=== PATIENT | male | born 1985 | race Caucasian/White ===

== ENCOUNTER 2018-07-21 07:16 | Day surgery (SDC) | payer BC ==
[2018-07-16 16:11] VITALS: BMI 37.3
[~2018-07-21 07:16] MED LIST: DEXAMETHASONE SOD PHOSPHATE 10 MG/ML 1 ML VIAL IV ONE; HEPARIN SODIUM,PORCINE 5,000 UNIT/ML 1 ML VIAL SQ ONE; LACTATED RINGERS 1,000 ML IV SCH; LIDOCAINE 1% 20 ML VIAL (10MG/ML) FOR IV START INTRADERMA PRN; MIDAZOLAM (PF) 2 MG/2 ML VIAL IV PRN; ceFAZolin 3 GM in SODIUM CHLORIDE 0.9% 100 ML IVPB ONE; fentaNYL (PF) 50 MCG/ML 2 ML AMP IV PRN
[2018-07-21] MEDS ORDERED: DEXAMETHASONE SOD PHOS (MDV) 100 MG/10 ML VIAL IVP ONE ×2 (08:01→08:18)
[2018-07-21] MEDS ORDERED: ONDANSETRON 4 MG/2 ML VIAL IVP ONE ×2 (08:01→08:17)
[2018-07-21] MEDS ORDERED: HEPARIN SODIUM,PORCINE 5,000 UNIT/ML 1 ML VIAL SQ ONE (08:15)
[2018-07-21] MEDS ORDERED: MIDAZOLAM 2 MG/2 ML VIAL IVP ONE (08:48)
[2018-07-21] MEDS ORDERED: BUPIVACAIN-EPI 0.5%-1:200,000 30 ML VIAL SQ ONE (09:24)
[2018-07-21] MEDS ORDERED: BUPIVACAINE (PF) 0.25% 30 ML VIAL SQ ONE (10:18)
[2018-07-21] MEDS ORDERED: HYDROcodone/APAP 5-325MG 1 EACH TAB PO PRN (10:38)
[2018-07-21] MEDS ORDERED: NALOXONE 0.4 MG/ML 1 ML VIAL IV PRN (10:38)
[2018-07-21] MEDS ORDERED: PROPOFOL 10 MG/ML 20 ML VIAL IV ONE (10:39)
[2018-07-21] MEDS ORDERED: MIDAZOLAM 2 MG/2 ML VIAL ONE (10:39)
[2018-07-21] MEDS ORDERED: NEOSTIGMINE 1 MG/ML 10 ML VIAL ONE (10:39)
[2018-07-21] MEDS ORDERED: SUCCINYLCHOLINE CHLORIDE VIAL 200 MG/10 ML VIAL IV ONE (10:39)
[2018-07-21] MEDS ORDERED: ROPIVACAINE 5 MG/ML 30 ML VIAL ONE (10:39)
[2018-07-21] MEDS ORDERED: LIDOCAINE 1% INJ 10MG/ML (20 ML MDV) ONE (10:39)
[2018-07-21] MEDS ORDERED: fentaNYL (PF) 50 MCG/ML 2 ML AMP ONE (10:39)
[2018-07-21] MEDS ORDERED: GLYCOPYRROLATE 0.2 MG/ML 2 ML VIAL ONE (10:39)
[2018-07-21] MEDS ORDERED: VECURONIUM 10 MG VIAL IV ONE (10:39)
[2018-07-21] MEDS ORDERED: DEXAMETHASONE SOD PHOS (MDV) 100 MG/10 ML VIAL ONE (10:39)
--- NOTE | 2018-07-21 10:41 | P.OP ---
Date of Procedure: 07/21/18 Procedure(s) Performed: PREOPERATIVE DIAGNOSIS: Incarcerated umbilical hernia POSTOPERATIVE DIAGNOSIS: Incarcerated ventral hernia PROCEDURE: Ventral herniorrhaphy with mesh SURGEON: Kervin EBL: Minimal ANESTHESIA: General COMPLICATIONS: None OPERATIVE PROCEDURE: The patient was placed in the operating table in the supine position. A superior periumbilical incision was made using the scalpel. The subcutaneous tissues were dissected bluntly. The hernia sac was identified. This was actually ventral to the umbilicus. The hernia sac was partially excised. The remaining hernia was reduced back into the preperitoneal space. The preperitoneal space was dissected using blunt dissection and electrocautery. The umbilical attachments were elevated off the fascia using electrocautery. In doing so a small defect at the umbilicus was also seen and incorporated into the larger fascial opening. We now had a fascial defect measuring 1.5-2 cm in diameter. The 4.3 cm ventral ex mesh was placed beneath the fascia. This was sutured to the fascia using trans-fascial 0 Ethibond sutures. The defect was closed using interrupted [id number] 0 Ethibond sutures. The subcutaneous tissues were reapproximated using inverted 3 -0 Vicryl sutures. The umbilicus was tacked back down to the fascia using a 3- 0 Vicryl suture. The skin was closed using 4-0 Monocryl sutures. Skin glue and sterile dressings were then applied. DISPOSITION: Stable to recovery room
[2018-07-21 10:42] VITALS: TEMP 97.6
[2018-07-21 12:23] VITALS: RESP 16
[2018-07-21 12:53] VITALS: BP 129/80; PULSE 70
--- NOTE | 2018-07-21 14:06 | P.ONQ ---
Anesthesiology Proc Note - PNB - Peripheral Nerve Block Performed Bilateral Rectus Abdominis Single Time Out Performed: Yes Procedure Start Time: :15 Procedure Stop Time: :30 Indication: Acute Post-Operative Pain, Analgesia, Dx/Pain Location, Requested by physician Sedation Type: Sedate with meaningful contact maintained (20 ml total solution)
== END 2018-07-21 13:28 | disposition home or self-care (01) ==
LOC: OR 07:16
PROVIDERS: ATTEND Surgery
DX: K43.6 Other and unspecified ventral hernia with obstruction, without gangrene (principal); I10 Essential (primary) hypertension; Z79.899 Other long term (current) drug therapy
CPT/HCPCS: 49561; 49568; 64488; 88302; C1781; J2250; J0330; J1644; J2710; J0690; J2405; J2001; J3010; J1100; J2795; J2704

== ENCOUNTER 2020-06-30 20:17 | Emergency (ER) | payer BC ==
[2020-06-30 20:31] VITALS: TEMP 98.5
[2020-06-30] MEDS ORDERED: ALPRAZolam 0.25 MG TAB PO STA (20:43)
--- NOTE | 2020-06-30 20:46 | ED ---
General Adult HPI - General Chief complaint: Recheck/Abnormal Lab/Rx Stated complaint: L Arm Tingling Time Seen by Provider: 06/30/20 20:31 Source: patient Mode of arrival: ambulatory Limitations: no limitations - History of Present Illness Initial comments: Dictation was produced using Revert dictation software. please excuse any grammatical, word or spelling errors. This patient was cared for during a federal and state declared state of emerg ency secondary to Covid 19 Chief Complaint: 34-year-old male presents paresthesias. History of Present Illness: Extremities with past medical history of hypertension. Patient states that today he begins having strange paresthesias. He states it first began his left hand. He started today he is having a stroke then his symptoms moved to his right fingertips. Shortly after he began feeling symptoms in his bilateral toes. Patient states he was diagnosed with anxiety initially around the time when his daughter was born because she was being worked up for possible cystic fibrosis. Patient's daughter does not have cystic fibrosis. Patient has a history of hypertension. He is recently started hydrochlorothiazide. Recently he is been trying to lose weight and has been running in eating 1200 4000 tyrone a day and running several miles.. He has not been taking any weight loss supplements. The ROS documented in this emergency department record has been reviewed and confirmed by me. Those systems with pertinent positive or negative responses have been documented in the HPI. All other systems are other negative and/or noncontributory. PHYSICAL EXAM: General Impression: Alert and oriented x3, not in acute distress HEENT: Normocephalic atraumatic, extra-ocular movements intact, pupils equal and reactive to light bilaterally, mucous membranes moist. Cardiovascular: Heart regular rate and rhythm Chest: Able to complete full sentences, no retractions, no tachypnea Abdomen: abdomen soft, non-tender, non-distended, no organomegaly Musculoskeletal: Pulses present and equal in all extremities, no peripheral edema Motor: no focal deficits noted Neurological: CN II-XII grossly intact, no focal motor or sensory deficits noted, NIH of 0 Skin: Intact with no visualized rashes Psych: Anxious ED course: 34-year-old male presents with chief complaint of paresthesias. All signs upon arrival are within acceptable limits. Patient not having any chest pain. Neither is he have any respiratory symptoms. He has migrating paresthesias. This likely secondary to anxiety reaction. EKG interpretation: Ventricular rate 82, normal sinus rhythm,. Interval 144, QRS 110, QTc 467. No IN prolongation, no QTC prolongation, no ST or T-wave changes noted. No old EKG for comparison. Overall, this EKG is unremarkable Laboratory evaluation obtained. CBC [place]. Metabolic panel is negative. Lites are negative. There is some evidence of mild dehydration. Patient observed in emergency department and medically stable. His vitals are improved. Patient was given some anxiolytic with improvement of his symptoms. Reassurance provided. Patient clear for discharge. Advised follow-up with primary care physician. - Related Data Home Medications Medication Instructions Recorded Confirmed Aspirin 650 mg PO ONCE 06/30/20 06/30/20 Hydrochlorothiazide 12.5 mg PO DAILY 06/30/20 06/30/20 [hydroCHLOROthiazide] Metoprolol Succinate [Toprol XL] 25 mg PO DAILY 06/30/20 06/30/20 amLODIPine/ATORVASTATIN 1 tab PO HS 06/30/20 06/30/20 [amLODIPine/ATORVASTATIN 5-10 MG] Allergies Allergy/AdvReac Type Severity Reaction Status Date / Time No Known Allergies Allergy Verified 06/30/20 21:43 Review of Systems ROS Statement: Those systems with pertinent positive or pertinent negative responses have been documented in the HPI. ROS Other: All systems not noted in ROS Statement are negative. Past Medical History Past Medical History: Hypertension Additional Past Medical History / Comment(s): UMBILICAL HERNIA History of Any Multi-Drug Resistant Organisms: None Reported Past Surgical History: Adenoidectomy, Hernia Repair, Tonsillectomy Past Anesthesia/Blood Transfusion Reactions: No Reported Reaction Past Psychological History: Anxiety Smoking Status: Never smoker Past Alcohol Use History: Occasional Past Drug Use History: None Reported - Past Family History Mother Family Medical History: Cancer Additional Family Medical History / Comment(s): SKIN General Exam Limitations: no limitations Course Vital Signs 06/30/20 06/30/20 20:24 21:28 Temperature 98.5 F Pulse Rate 89 81 Respiratory 22 16 Rate Blood Pressure 166/118 137/97 O2 Sat by Pulse 98 99 Oximetry Medical Decision Making - Lab Data Result diagrams: 06/30/20 21:02 06/30/20 21:02 Lab Results 06/30/20 06/30/20 Range/Units 21:02 21:02 WBC 8.8 (3.8-10.6) k/uL RBC 5.77 (4.30-5.90) m/uL Hgb 16.9 (13.0-17.5) gm/dL Hct 50.6 (39.0-53.0) % MCV 87.6 (80.0-100.0) fL MCH 29.3 (25.0-35.0) pg MCHC 33.5 (31.0-37.0) g/dL RDW 13.4 (11.5-15.5) % Plt Count 251 (150-450) k/uL MPV 7.5 Neutrophils % 56 % Lymphocytes % 33 % Monocytes % 6 % Eosinophils % 1 % Basophils % 1 % Neutrophils # 5.0 (1.3-7.7) k/uL Lymphocytes # 2.9 (1.0-4.8) k/uL Monocytes # 0.5 (0-1.0) k/uL Eosinophils # 0.1 (0-0.7) k/uL Basophils # 0.1 (0-0.2) k/uL Sodium 137 (137-145) mmol/L Potassium 4.3 (3.5-5.1) mmol/L Chloride 99 (98-107) mmol/L Carbon Dioxide 25 (22-30) mmol/L Anion Gap 13 mmol/L BUN 23 H (9-20) mg/dL Creatinine 1.13 (0.66-1.25) mg/dL Est GFR (CKD-EPI)AfAm >90 (>60 ml/min/1.73 sqM) Est GFR (CKD-EPI)NonAf 84 (>60 ml/min/1.73 sqM) Glucose 103 H (74-99) mg/dL Calcium 10.1 (8.4-10.2) mg/dL Magnesium 2.2 (1.6-2.3) mg/dL Disposition Clinical Impression: Paresthesias Disposition: HOME SELF-CARE Condition: Good Is patient prescribed a controlled substance at d/c from ED?: No Referrals: Pranay Kirk DO [Primary Care Provider] - 1-2 days Time of Disposition: 22:00
[2020-06-30 21:16] LABS: Basophils # (A) 0.1 k/uL (0-0.2); Basophils % (A) 1 %; Eosinophils # (A) 0.1 k/uL (0-0.7); Eosinophils % (A) 1 %; HCT 50.6 % (39.0-53.0); HGB 16.9 gm/dL (13.0-17.5); Lymphocytes # (A) 2.9 k/uL (1.0-4.8); Lymphocytes % (A) 33 %; MCH 29.3 pg (25.0-35.0); MCHC 33.5 g/dL (31.0-37.0); MCV 87.6 fL (80.0-100.0); Mean Platelet Volume 7.5; Monocytes # (A) 0.5 k/uL (0-1.0); Monocytes % (A) 6 %; Neutrophils % (A) 56 %; Platelet Count 251 k/uL (150-450); RBC 5.77 m/uL (4.30-5.90); RDW 13.4 % (11.5-15.5); WBC 8.8 k/uL (3.8-10.6)
[2020-06-30 21:30] VITALS: RESP 16
[2020-06-30 21:38] LABS: African American GFR (CKD) >90 (>60 ml/min/1.73 sqM); Anion Gap 13 mmol/L; Blood Urea Nitrogen 23 mg/dL (9-20); Calcium 10.1 mg/dL (8.4-10.2); Carbon Dioxide 25 mmol/L (22-30); Chloride 99 mmol/L (98-107); Glucose 103 mg/dL (74-99); Magnesium 2.2 mg/dL (1.6-2.3); Non-African American GFR(CKD) 84 (>60 ml/min/1.73 sqM); Potassium 4.3 mmol/L (3.5-5.1); Sodium 137 mmol/L (137-145)
[2020-06-30 22:10] VITALS: BP 134/86; PULSE 80
== END 2020-06-30 22:09 | disposition home or self-care (01) ==
LOC: EC 20:17
DX: R20.2 Paresthesia of skin (principal); E86.0 Dehydration; I10 Essential (primary) hypertension; Z79.82 Long term (current) use of aspirin; Z79.899 Other long term (current) drug therapy
CPT/HCPCS: 36415; 80048; 83735; 85025; 93005; 99284

== ENCOUNTER 2020-11-04 03:00 | Inpatient (IN) | payer BC ==
[2020-11-04] MEDS ORDERED: ALBUTEROL HFA INHALER INHALATION STA (03:15)
[2020-11-04] MEDS ORDERED: DEXAMETHASONE SOD PHOSPHATE 10 MG/ML 1 ML VIAL IV STA (03:15)
[2020-11-04] MEDS ORDERED: SODIUM CHLORIDE 0.9% 1,000 ML IV STA (03:15)
[2020-11-04] MEDS ORDERED: ACETAMINOPHEN TAB 500 MG TAB PO STA (03:15)
[2020-11-04] MEDS ORDERED: KETOROLAC 15 MG/ML 1 ML VIAL IVP STA (03:15)
--- NOTE | 2020-11-04 03:24 | ED ---
SOB HPI - General Chief Complaint: Shortness of Breath Stated Complaint: COVID+, SOB Time Seen by Provider: 11/04/20 03:06 Source: patient, RN notes reviewed, old records reviewed Mode of arrival: ambulatory Limitations: no limitations - History of Present Illness Initial Comments: This is a 34-year-old male with around 1 week symptoms of coronavirus. Patient symptoms are progressively worsened with severe shortness of breath. Patient does have a pulse ox and has been dropping down in the 70s at home. Patient states he feels very weak and short of breath but no specific pain. Patient has had fevers. Patient is unvaccinated MD Complaint: shortness of breath, cough, anxiety -: days(s) Severity: severe Severity scale (1-10): 8 Quality: throbbing Consistency: constant Improves With: nothing Worsens With: exertion, movement, coughing, inspiration Context: recent URI, recent illness (Known positive history of coronavirus) Associated Symptoms: fever, cough - Related Data Home Medications Medication Instructions Recorded Confirmed Aspirin 650 mg PO ONCE 06/30/20 06/30/20 Hydrochlorothiazide 12.5 mg PO DAILY 06/30/20 06/30/20 [hydroCHLOROthiazide] Metoprolol Succinate [Toprol XL] 25 mg PO DAILY 06/30/20 06/30/20 amLODIPine/ATORVASTATIN 1 tab PO HS 06/30/20 06/30/20 [amLODIPine/ATORVASTATIN 5-10 MG] Allergies Allergy/AdvReac Type Severity Reaction Status Date / Time No Known Allergies Allergy Verified 11/04/20 03:07 Review of Systems ROS Statement: Those systems with pertinent positive or pertinent negative responses have been documented in the HPI. ROS Other: All systems not noted in ROS Statement are negative. Past Medical History Past Medical History: Hypertension Additional Past Medical History / Comment(s): UMBILICAL HERNIA, Covid 11/19 History of Any Multi-Drug Resistant Organisms: None Reported Past Surgical History: Adenoidectomy, Hernia Repair, Tonsillectomy Past Anesthesia/Blood Transfusion Reactions: No Reported Reaction Past Psychological History: Anxiety Smoking Status: Never smoker Past Alcohol Use History: Occasional Past Drug Use History: None Reported - Past Family History Mother Family Medical History: Cancer Additional Family Medical History / Comment(s): SKIN General Exam Limitations: no limitations General appearance: alert, in no apparent distress, anxious, lethargic Head exam: Present: atraumatic, normocephalic, normal inspection Eye exam: Present: normal appearance, PERRL, EOMI. Absent: scleral icterus, conjunctival injection, periorbital swelling ENT exam: Present: normal exam, mucous membranes moist Neck exam: Present: normal inspection. Absent: tenderness, meningismus, lymphadenopathy Respiratory exam: Present: normal lung sounds bilaterally. Absent: respiratory distress, wheezes, rales, rhonchi, stridor Cardiovascular Exam: Present: regular rate, normal rhythm, normal heart sounds. Absent: systolic murmur, diastolic murmur, rubs, gallop, clicks GI/Abdominal exam: Present: soft, normal bowel sounds. Absent: distended, tenderness, guarding, rebound, rigid Extremities exam: Present: normal inspection, full ROM, normal capillary refill. Absent: tenderness, pedal edema, joint swelling, calf tenderness Back exam: Present: normal inspection Neurological exam: Present: alert, oriented X3, CN II-XII intact Psychiatric exam: Present: normal affect, normal mood Skin exam: Present: warm, dry, intact, normal color. Absent: rash Course Vital Signs 11/04/20 11/04/20 11/04/20 03:04 04:06 05:31 Temperature 99.1 F 99.4 F Pulse Rate 92 84 Respiratory 24 18 Rate Blood Pressure 165/100 128/81 O2 Sat by Pulse 96 88 L 94 L Oximetry - Reevaluation(s) Reevaluation #1: 11/04/20 04:21 Medical records reviewed Reevaluation #2: 11/04/20 04:21 Patient does have improvement with supplemental O2 Reevaluation #3: 11/04/20 04:21 Symptoms Worsen at times especially when he lays down, pulse ox drops Medical Decision Making - Medical Decision Making 84 male will be admitted for coronavirus with hypoxia - Lab Data Result diagrams: 11/04/20 03:49 11/04/20 03:49 Lab Results 11/04/20 11/04/20 11/04/20 Range/Units 03:49 03:49 03:49 WBC 4.2 (3.8-10.6) k/uL RBC 4.86 (4.30-5.90) m/uL Hgb 14.5 (13.0-17.5) gm/dL Hct 42.7 (39.0-53.0) % MCV 87.9 (80.0-100.0) fL MCH 29.9 (25.0-35.0) pg MCHC 34.0 (31.0-37.0) g/dL RDW 13.7 (11.5-15.5) % Plt Count 173 (150-450) k/uL MPV 8.2 Neutrophils % 62 % Lymphocytes % 24 % Monocytes % 9 % Eosinophils % 0 % Basophils % 1 % Neutrophils # 2.6 (1.3-7.7) k/uL Lymphocytes # 1.0 (1.0-4.8) k/uL Monocytes # 0.4 (0-1.0) k/uL Eosinophils # 0.0 (0-0.7) k/uL Basophils # 0.0 (0-0.2) k/uL PT 11.0 (9.0-12.0) sec INR 1.0 (<1.2) APTT 28.6 (22.0-30.0) sec Sodium 136 L (137-145) mmol/L Potassium 3.5 (3.5-5.1) mmol/L Chloride 102 (98-107) mmol/L Carbon Dioxide 24 (22-30) mmol/L Anion Gap 10 mmol/L BUN 16 (9-20) mg/dL Creatinine 0.93 (0.66-1.25) mg/dL Est GFR (CKD-EPI)AfAm >90 (>60 ml/min/1.73 sqM) Est GFR (CKD-EPI)NonAf >90 (>60 ml/min/1.73 sqM) Glucose 90 (74-99) mg/dL Plasma Lactic Acid Marc (0.7-2.0) mmol/L Calcium 8.8 (8.4-10.2) mg/dL Magnesium 1.9 (1.6-2.3) mg/dL Total Bilirubin 0.5 (0.2-1.3) mg/dL AST 69 H (17-59) U/L ALT 84 H (4-49) U/L Alkaline Phosphatase 57 (38-126) U/L Lactate Dehydrogenase 865 H (313-618) U/L C-Reactive Protein 7.6 H (<1.0) mg/dL Total Protein 6.4 (6.3-8.2) g/dL Albumin 3.9 (3.5-5.0) g/dL 11/04/20 Range/Units 03:49 WBC (3.8-10.6) k/uL RBC (4.30-5.90) m/uL Hgb (13.0-17.5) gm/dL Hct (39.0-53.0) % MCV (80.0-100.0) fL MCH (25.0-35.0) pg MCHC (31.0-37.0) g/dL RDW (11.5-15.5) % Plt Count (150-450) k/uL MPV Neutrophils % % Lymphocytes % % Monocytes % % Eosinophils % % Basophils % % Neutrophils # (1.3-7.7) k/uL Lymphocytes # (1.0-4.8) k/uL Monocytes # (0-1.0) k/uL Eosinophils # (0-0.7) k/uL Basophils # (0-0.2) k/uL PT (9.0-12.0) sec INR (<1.2) APTT (22.0-30.0) sec Sodium (137-145) mmol/L Potassium (3.5-5.1) mmol/L Chloride (98-107) mmol/L Carbon Dioxide (22-30) mmol/L Anion Gap mmol/L BUN (9-20) mg/dL Creatinine (0.66-1.25) mg/dL Est GFR (CKD-EPI)AfAm (>60 ml/min/1.73 sqM) Est GFR (CKD-EPI)NonAf (>60 ml/min/1.73 sqM) Glucose (74-99) mg/dL Plasma Lactic Acid Marc 0.9 (0.7-2.0) mmol/L Calcium (8.4-10.2) mg/dL Magnesium (1.6-2.3) mg/dL Total Bilirubin (0.2-1.3) mg/dL AST (17-59) U/L ALT (4-49) U/L Alkaline Phosphatase (38-126) U/L Lactate Dehydrogenase (313-618) U/L C-Reactive Protein (<1.0) mg/dL Total Protein (6.3-8.2) g/dL Albumin (3.5-5.0) g/dL - EKG Data -: EKG Interpreted by Me (EKG shows sinus rhythm 89, NC 144 QRS 102 QTC 440) - Radiology Data Radiology results: report reviewed (Chest x-ray shows bilateral lower lobe infiltrates), image reviewed Critical Care Time Critical Care Time: Yes Total Critical Care Time: 31 Disposition Clinical Impression: Coronavirus infection, Pneumonia due to 2019 novel coronavirus, Acute pulmonary edema, Hypoxia Disposition: ADMITTED IP TO THIS HOSP Condition: Fair Is patient prescribed a controlled substance at d/c from ED?: No
--- NOTE | 2020-11-04 04:10 | XR ---
EXAM: XR Chest, 1 View CLINICAL HISTORY: ITS.REASON XR Reason: Suspected COVID-19 pneumonia TECHNIQUE: Frontal view of the chest. COMPARISON: No relevant prior studies available. FINDINGS: Lungs: Airspace opacity seen within the lower lungs which may be infectious. Pleural space: Unremarkable. Heart: Unremarkable. Mediastinum: Unremarkable. Bones/joints: Unremarkable. IMPRESSION: Airspace opacities seen within the lower lungs which may be infectious.
[2020-11-04] MEDS ORDERED: MORPHINE SULFATE 4 MG/ML SYRINGE IV PRN (04:19)
[2020-11-04] MEDS ORDERED: NALOXONE 0.4 MG/ML 1 ML VIAL IV PRN (04:19)
[2020-11-04 04:22] LABS: Basophils % (A) 1 %; Eosinophils % (A) 0 %; HCT 42.7 % (39.0-53.0); HGB 14.5 gm/dL (13.0-17.5); Lymphocytes % (A) 24 %; MCH 29.9 pg (25.0-35.0); MCV 87.9 fL (80.0-100.0); Mean Platelet Volume 8.2; Monocytes # (A) 0.4 k/uL (0-1.0); Monocytes % (A) 9 %; Neutrophils # (A) 2.6 k/uL (1.3-7.7); Neutrophils % (A) 62 %; Platelet Count 173 k/uL (150-450); RBC 4.86 m/uL (4.30-5.90); RDW 13.7 % (11.5-15.5); WBC 4.2 k/uL (3.8-10.6)
[2020-11-04] MEDS ORDERED: IBUPROFEN 600 MG TAB PO PRN (04:22)
[2020-11-04 04:34] LABS: ALT 84 U/L (4-49); AST 69 U/L (17-59); African American GFR (CKD) >90 (>60 ml/min/1.73 sqM); Albumin 3.9 g/dL (3.5-5.0); Alkaline Phosphatase 57 U/L (38-126); Anion Gap 10 mmol/L; Blood Urea Nitrogen 16 mg/dL (9-20); C Reactive Protein 7.6 mg/dL (<1.0); Calcium 8.8 mg/dL (8.4-10.2); Carbon Dioxide 24 mmol/L (22-30); Chloride 102 mmol/L (98-107); Glucose 90 mg/dL (74-99); LDH 865 U/L (313-618); Magnesium 1.9 mg/dL (1.6-2.3); Non-African American GFR(CKD) >90 (>60 ml/min/1.73 sqM); Potassium 3.5 mmol/L (3.5-5.1); Sodium 136 mmol/L (137-145); Total Bilirubin 0.5 mg/dL (0.2-1.3); Total Protein 6.4 g/dL (6.3-8.2)
[2020-11-04 04:40] LABS: Partial Thromboplastin Time 28.6 sec (22.0-30.0)
[2020-11-04] MEDS: SODIUM CHLORIDE 0.9% 1,000 ML IV SCH ×3 (05:36→22:33)
[2020-11-04] MEDS ORDERED: RX INFO: IV CONTRAST WAS GIVEN 1 EACH MISC MISCELLANE PRN (09:17)
--- NOTE | 2020-11-04 10:03 | CT ---
EXAMINATION TYPE: CT chest angio for PE DATE OF EXAM: 11/04/2020 COMPARISON: None HISTORY: Covid Hypoxia CT DLP: 969.1 mGycm Automated exposure control for dose reduction was used. CONTRAST: CT Chest for pulmonary embolism performed with with IV Contrast, patient injected with 85 mL of Isovu e 370. FINDINGS: There are scattered groundglass and multifocal consolidative densities within the lungs consistent wi th acute inflammatory process characteristic Covid pneumonia. There is no pleural effusion, pleural thickening or pneumothorax. There is a 2.7 cm enlarged right hilar lymph node. There is no mediastinal or axillary adenopathy. The great vessels chest appear normal and there is no filling defect within the pulmonary artery circ ulation to suggest pulmonary embolism. Limited scanning the upper abdomen reveals no abnormality. IMPRESSION: 1. Findings consistent with Covid pneumonia as described above. 2. No evidence of pulmonary embolism.
[2020-11-04] MEDS: ENOXAPARIN 40 MG/0.4 ML SYRINGE SQ SCH (11:56)
[2020-11-04] MEDS: ZINC SULFATE 220 MG CAP PO SCH (11:57)
[2020-11-04] MEDS ORDERED: REMDESIVIR 200 MG in SODIUM CHLORIDE 0.9% 250 ML IVPB ONE (12:00)
--- NOTE | 2020-11-04 12:35 | P.CNPUL ---
History of Present Illness Consult date: 11/04/20 Requesting physician: Tian Morris Reason for consult: dyspnea, abnormal CXR/CT Chief complaint: Fever, chills, shortness of breath History of present illness: This is a very pleasant 34-year-old gentleman with a known history of hypertension, hyperlipidemia, obesity. On 10/30/2020 he developed symptoms of increasing shortness of breath, fever, chills and shakiness. He tested positive for COVID-19 on 11/02/2020 at [facility]. Yesterday his symptoms progressed and he has a home pulse oximeter that was radiating in the 70s. He has not received a COVID-19 vaccine. He has a coworker who was positive. His and children are asymptomatic. Chest x-ray reveals bilateral airspace opacities within the lower lungs. CT angiogram revealed no evidence of pulmonary embolism. There is scattered groundglass and multifocal consolidative disease within the lungs bilaterally consistent with COVID-19 pneumonia. White count 4.2. Hemoglobin 14.5. Sodium 136. Potassium 3.5. Creatinine 0.93. AST 69, ALT 84. LDH 865. C-reactive protein 7.6. He was given IV Decadron 10 mg 1 and 1 L of fluid. He is seen today in the emergency room. Currently laying comfortably on the stretcher. He states he is doing a bit better today compared to yesterday already. No worsening shortness of breath, cough or congestion. T-max 99.4. Maintaining O2 saturations in the low 90s on 2 L/m per nasal cannula. He has lost his sense of taste. He had a mild headache. No diarrhea. Review of Systems REVIEW OF SYSTEMS: CONSTITUTIONAL: Positive for fever, chills. Denies any recent significant weight loss or weight gain. EYES: Denies change in vision. EARS, NOSE, MOUTH, THROAT: Positive for headaches, loss of taste denies sore throat. CARDIOVASCULAR: Denies chest pain, palpitations or syncopal episodes. RESPIRATORY: Positive for shortness of breath, cough, congestion no hemoptysis. GASTROINTESTINAL: Denies change in appetite, denies abdominal pain GENITOURINARY: Denies hematuria, denies infections. MUSKULOSKELETAL: Denies pain, denies swelling. INTEGUMENTARY: Denies rash, denies eczema. NEUROLOGICAL: Denies recent memory loss, no recent seizure activity. PSYCHIATRIC: Denies anxiety, denies depression. HEMATOLOGIC/LYMPHATIC: Denies anemia, denies enlarged lymph nodes. Past Medical History Past Medical History: Hypertension Additional Past Medical History / Comment(s): UMBILICAL HERNIA, Covid 11/19 History of Any Multi-Drug Resistant Organisms: None Reported Past Surgical History: Adenoidectomy, Hernia Repair, Tonsillectomy Past Anesthesia/Blood Transfusion Reactions: No Reported Reaction Past Psychological History: Anxiety Smoking Status: Never smoker Past Alcohol Use History: Occasional Past Drug Use History: None Reported - Past Family History Mother Family Medical History: Cancer Additional Family Medical History / Comment(s): SKIN Medications and Allergies Home Medications Medication Instructions Recorded Confirmed Type Hydrochlorothiazide 12.5 mg PO DAILY 06/30/20 11/04/20 History [hydroCHLOROthiazide] Metoprolol Succinate [Toprol XL] 25 mg PO DAILY 06/30/20 11/04/20 History amLODIPine/ATORVASTATIN 1 tab PO HS 06/30/20 11/04/20 History [amLODIPine/ATORVASTATIN 5-10 MG] Acetaminophen Tab [Tylenol Tab] 1,000 mg PO Q6HR PRN 11/04/20 11/04/20 History Allergies Allergy/AdvReac Type Severity Reaction Status Date / Time No Known Allergies Allergy Verified 11/04/20 08:55 Physical Exam Vitals: Vital Signs Temp Pulse Resp BP Pulse Ox 11/04/20 10:06 98.4 F 84 18 140/100 95 11/04/20 05:31 99.4 F 84 18 128/81 94 L 11/04/20 04:06 88 L 11/04/20 03:04 99.1 F 92 24 165/100 96 Intake and Output 11/03/20 11/04/20 11/04/20 22:59 06:59 14:59 Other: Weight 127.006 kg GENERAL EXAM: Alert, pleasant, obese 34-year-old gentleman, on 2 L nasal cannula, comfortable in no apparent distress. HEAD: Normocephalic. EYES: Normal reaction of pupils, equal size. NOSE: Clear with pink turbinates. THROAT: No erythema or exudates. NECK: No masses, no JVD. CHEST: No chest wall deformity. LUNGS: Equal air entry with crackles in the posterior bases. CVS: S1 and S2 normal with no audible murmur, regular rhythm. ABDOMEN: No hepatosplenomegaly, normal bowel sounds, no guarding or rigidity. SPINE: No scoliosis or deformity SKIN: No rashes CENTRAL NERVOUS SYSTEM: No focal deficits, tone is normal in all 4 extremities. EXTREMITIES: There is no peripheral edema. No clubbing, no cyanosis. Peripheral pulses are intact. Results - Laboratory Findings CBC and BMP: 11/04/20 03:49 11/04/20 03:49 PT/INR, D-dimer PT 11.0 sec (9.0-12.0) 11/04/20 03:49 INR 1.0 (<1.2) 11/04/20 03:49 Abnormal lab findings: Abnormal Labs 11/04/20 03:49 Sodium 136 L AST 69 H ALT 84 H Lactate Dehydrogenase 865 H C-Reactive Protein 7.6 H - Diagnostic Findings Chest x-ray: image reviewed CT scan - chest: image reviewed Assessment and Plan Assessment: 1 Acute hypoxic respiratory failure secondary to acute COVID-19 pneumonia. Symptoms started 10/30/2020. Positive CoVID at [facility] on 11/02/2020. Remdesivir initiated today 11/04/2020. 2 Elevated inflammatory marker secondary to above 3 Mild transaminitis secondary to above 4 Hypertension 5 Obesity 6 Hyperlipidemia Plan: The patient was seen and evaluated by Dr. Sanderson Chest x-ray, CT angiogram, labs reviewed Initiate Remdesivir Initiate Lovenox, Decadron, vitamin supplements Titrate the FiO2 as tolerated Follow-up inflammatory markers, d-dimer a.m. We will continue to follow make further recommendations based on his clinical status I, the cosigning physician, performed a history & physical examination of the patient. Lungs sounds crackles in the bilateral posterior bases Maintaining good O2 saturations in the 90s on 2 L/m per nasal cannula. I discussed the assessment and plan of care with my nurse practitioner, Steffi Christian. I attest to the above consultation as dictated by her. Time with Patient: Greater than 30
[2020-11-04] MEDS ORDERED: HYDROcodone/APAP 5-325MG 1 EACH TAB PO PRN (15:35)
[2020-11-04] MEDS ORDERED: ALPRAZolam 0.25 MG TAB PO PRN (15:36)
[2020-11-04] MEDS: hydroCHLOROthiazide 12.5 MG CAP PO SCH (16:13)
[2020-11-04] MEDS: METOPROLOL SUCCINATE (ER) 25 MG TAB.ER.24H PO SCH (16:14)
[2020-11-04] MEDS: ASCORBIC ACID 500 MG TAB PO SCH (16:14)
[2020-11-04] MEDS: CHOLECALCIFEROL 25 MCG (1000 IU) TABLET PO SCH (16:14)
[2020-11-04] MEDS: ACETAMINOPHEN TAB 325 MG TAB PO PRN (18:01)
--- NOTE | 2020-11-04 19:06 | HP ---
HISTORY AND PHYSICAL I am covering for Dr. Kirk. DATE OF SERVICE: 11/04/2020. CHIEF COMPLAINTS: Shortness of breath and cough and chills. HISTORY OF PRESENT ILLNESS: This 34-year-old gentleman with past medical history of hypertension, history of umbilical hernia, adenoidectomy, hernia repair as been having Covid symptoms since Thursday. The patient apparently is working with somebody at work, who had COVID-19. Patient was tested positive and the patient had increasing shortness of breath and cough and the patient came to [facility] earlier this morning and was admitted for evaluation and treatment. The patient noted to have bilateral interstitial pneumonia suggestive of acute COVID-19 pneumonia. The patient also hypoxic on presentation, on nasal cannula. Remdesivir was being initiated by Dr. Sanderson. There is no history of fever, rigors, chills at this time. PAST MEDICAL HISTORY: History of hypertension, umbilical hernia, adenoidectomy, hernia repair. MEDICATIONS: Home medications are: Amlodipine, atorvastatin, 5/10, metoprolol. Hydrochlorothiazide. Tylenol. ALLERGIES: None. FAMILY HISTORY: No history of heart disease or strokes in the family. SOCIAL HISTORY: No history of smoking. No history of alcohol intake. REVIEW OF SYSTEMS: ENT: No diminished vision. No diminished hearing. CARDIOVASCULAR system: As mentioned earlier. RESPIRATORY: As mentioned earlier. GI no nausea or vomiting. no dysuria. Nervous system: No numbness, weakness. ALLERGY/IMMUNOLOGY: No asthma or hayfever. MUSCULOSKELETAL as mentioned earlier. HEMATOLOGY/ONCOLOGY: No history of anemia. ENDOCRINE: No history of diabetes or hypothyroidism. CONSTITUTIONAL: As mentioned earlier. DERMATOLOGY: Negative. RHEUMATOLOGY: Negative. PSYCHIATRIC: As mentioned earlier. PHYSICAL EXAMINATION: The patient is alert and oriented times three. Pulse 97, blood pressure 162/109, respiration 18, temperature 99.2, pulse ox 98% on room air. HEENT: Conjunctivae normal. NECK: No JVD. CARDIOVASCULAR: S1, S2 muffled. RESPIRATORY SYSTEM: Breath sounds diminished at the bases. A few scattered rhonchi. ABDOMEN is soft, nontender. No mass palpable. LEGS: No edema. No swelling. NERVOUS SYSTEM: No focal deficits. LABS: CBC within normal limits. Sodium 130, potassium 3.5. AST 69, ALT is 84. ASSESSMENT: 1. Acute COVID-19 bilateral interstitial pneumonia with acute hypoxic respiratory failure on Remdesivir. 2. Increased AST/ALT. 3. Increased LDH. 4. Increased CRP. 5. Hyponatremia. 6. Hypertension. 7. History of umbilical hernia. 8. History of adenoidectomy. 9. History of hernia repair. 10.History of anxiety. 11.Obesity with body mass of 41.3. 12.FULL CODE. RECOMMENDATIONS AND DISCUSSION: In this 34-year-old gentleman who presented with multiple complex medical issues, we will monitor the patient closely, continue the current medications, management and symptomatic treatment. We will continue with the bronchodilator, inhalers, Lovenox, Zinc, Remdesivir. The rest of the usual medications. Prognosis guarded because of multiple complex medical issues. Further recommendations to follow. Also recommend serum procalcitonin and inflammatory markers of Covid 19. See orders for details. A copy of this dictation being forwarded to Dr. Kirk who is the primary physician. MMMAURILIO / PACHECON: [id number] /
[2020-11-04] MEDS: ATORVASTATIN 10 MG TAB PO SCH (20:04)
[2020-11-04] MEDS: amLODIPine 5 MG TAB PO SCH (20:08)
[2020-11-05] MEDS: PANTOPRAZOLE 40 MG TABLET PO SCH (07:39)
[2020-11-05] MEDS: hydroCHLOROthiazide 12.5 MG CAP PO SCH (07:39)
[2020-11-05] MEDS: SODIUM CHLORIDE 0.9% 1,000 ML IV SCH ×2 (07:40→22:04)
[2020-11-05] MEDS: ENOXAPARIN 40 MG/0.4 ML SYRINGE SQ SCH (07:40)
[2020-11-05] MEDS: ASCORBIC ACID 500 MG TAB PO SCH (07:40)
[2020-11-05] MEDS: METOPROLOL SUCCINATE (ER) 25 MG TAB.ER.24H PO SCH (07:40)
[2020-11-05] MEDS: ZINC SULFATE 220 MG CAP PO SCH (07:40)
[2020-11-05] MEDS: CHOLECALCIFEROL 25 MCG (1000 IU) TABLET PO SCH (07:40)
[2020-11-05] MEDS ORDERED: DEXAMETHASONE SOD PHOSPHATE 10 MG/ML 1 ML VIAL IV SCH (09:00)
[2020-11-05 09:47] LABS: Basophils % (A) 0 %; Eosinophils % (A) 0 %; HCT 45.2 % (39.0-53.0); Lymphocytes # (A) 1.1 k/uL (1.0-4.8); Lymphocytes % (A) 19 %; MCH 29.3 pg (25.0-35.0); MCHC 33.1 g/dL (31.0-37.0); MCV 88.5 fL (80.0-100.0); Mean Platelet Volume 7.8; Monocytes # (A) 0.2 k/uL (0-1.0); Monocytes % (A) 3 %; Neutrophils # (A) 4.3 k/uL (1.3-7.7); Neutrophils % (A) 76 %; Platelet Count 215 k/uL (150-450); RBC 5.11 m/uL (4.30-5.90); RDW 13.6 % (11.5-15.5); WBC 5.6 k/uL (3.8-10.6)
[2020-11-05 10:20] LABS: ALT 77 U/L (4-49); AST 64 U/L (17-59); African American GFR (CKD) >90 (>60 ml/min/1.73 sqM); Albumin 3.9 g/dL (3.5-5.0); Albumin/Globulin Ratio 1.6; Alkaline Phosphatase 60 U/L (38-126); Anion Gap 10 mmol/L; Blood Urea Nitrogen 12 mg/dL (9-20); Calcium 8.7 mg/dL (8.4-10.2); Carbon Dioxide 28 mmol/L (22-30); Chloride 102 mmol/L (98-107); Globulin 2.5 g/dL; Glucose 140 mg/dL (74-99); Non-African American GFR(CKD) >90 (>60 ml/min/1.73 sqM); Potassium 3.8 mmol/L (3.5-5.1); Sodium 140 mmol/L (137-145); Total Bilirubin 0.4 mg/dL (0.2-1.3); Total Protein 6.4 g/dL (6.3-8.2)
[2020-11-05] MEDS: REMDESIVIR 100 MG in SODIUM CHLORIDE 0.9% 250 ML IVPB SCH (11:12)
--- NOTE | 2020-11-05 12:25 | P.PN ---
Subjective Progress Note Date: 11/05/20 Principal diagnosis: COVID 19 This is a very pleasant 34-year-old gentleman with a known history of hypertension, hyperlipidemia, obesity. On 10/30/2020 he developed symptoms of i ncreasing shortness of breath, fever, chills and shakiness. He tested positive for COVID-19 on 11/02/2020 at [facility]. Yesterday his symptoms progressed and he has a home pulse oximeter that was radiating in the 70s. He has not received a COVID-19 vaccine. He has a coworker who was positive. His and children are asymptomatic. Chest x-ray reveals bilateral airspace opacities within the lower lungs. CT angiogram revealed no evidence of pulmonary embolism. There is scattered groundglass and multifocal consolidative disease within the lungs bilaterally consistent with COVID-19 pneumonia. White count 4.2. Hemoglobin 14.5. Sodium 136. Potassium 3.5. Creatinine 0.93. AST 69, ALT 84. LDH 865. C-reactive protein 7.6. He was given IV Decadron 10 mg 1 and 1 L of fluid. He is seen today in the emergency room. Currently laying comfortably on the stretcher. He states he is doing a bit better today compared to yesterday already. No worsening shortness of breath, cough or congestion. T-max 99.4. Maintaining O2 saturations in the low 90s on 2 L/m per nasal cannula. He has lost his sense of taste. He had a mild headache. No diarrhea. On 11/05/2020 patient seen in follow-up on medical surgical floor. he is awake alert, in no acute distress, he is on 2 L of oxygen pulse ox is 97%, he is afebrile, hemodynamically stable, breathing comfortably, today is day 2 of Re mdesivir treatment, he is also on IV Decadron 6 mg daily, some prophylactic dose of Lovenox, and multivitamins. Denies any chest discomfort, only occasional cough, no nausea vomiting or diarrhea. Today's labs have been reviewed, CBC was unremarkable, his last d-dimer from yesterday was 1.28, electrolytes and renal profile were within normal limits. Objective - Vital Signs Vital signs: Vital Signs Temp 97.8 F 11/05/20 10:00 Pulse 79 11/05/20 10:00 Resp 18 11/05/20 10:00 BP 143/93 11/05/20 10:00 Pulse Ox 97 11/05/20 10:00 Intake & Output 11/04/20 11/05/20 11/05/20 18:59 06:59 18:59 Intake Total 900 Balance 900 Intake: Intake, IV Titration 900 Amount Sodium Chloride 0.9% 1, 900 000 ml @ 75 mls/hr IV . [id number] [facility] Rx#:[id number] Other: Voiding Method Toilet Toilet # Voids 1 - Exam GENERAL EXAM: Alert, very pleasant, 34-year-old white male, 2 L of oxygen and the pulse ox of 97%, on comfortable in no apparent distress. HEAD: Normocephalic/atraumatic. EYES: Normal reaction of pupils, equal size. Conjunctiva pink, sclera white. NOSE: Clear with pink turbinates. THROAT: No erythema or exudates. NECK: No masses, no JVD, no thyroid enlargement, no adenopathy. CHEST: No chest wall deformity. Symmetrical expansion. LUNGS: Equal air entry with no crackles, wheeze, rhonchi or dullness. CVS: Regular rate and rhythm, normal S1 and S2, no gallops, no murmurs, no rubs ABDOMEN: Soft, nontender. No hepatosplenomegaly, normal bowel sounds, no guarding or rigidity. EXTREMITIES: No clubbing, no edema, no cyanosis, 2+ pulses and upper and lower extremities. MUSCULOSKELETAL: Muscle strength and tone normal. SPINE: No scoliosis or deformity SKIN: No rashes CENTRAL NERVOUS SYSTEM: Alert and oriented -3. No focal deficits, tone is normal in all 4 extremities. PSYCHIATRIC: Alert and oriented -3. Appropriate affect. Intact judgment and insight. - Labs CBC & Chem 7: 11/05/20 09:18 11/05/20 09:18 Labs: Abnormal Lab Results - Last 24 Hours (Table) 11/04/20 11/04/20 11/05/20 Range/Units 15:58 15:58 09:18 D-Dimer 1.28 H (<0.60) mg/L FEU Glucose 140 H (74-99) mg/dL Ferritin 1219.7 H (22.0-322.0) ng/mL AST 64 H (17-59) U/L ALT 77 H (4-49) U/L Assessment and Plan Plan: Assessment: #1. Acute hypoxic rest or a failure secondary to acute COVID-19 pneumonia, onset of symptoms was on 10/30/2020, positive Kovic test at [facility] on 11/02/2020, Remdesivir started on 11/04/2020 #2. Elevated inflammatory markers related to the above #3. Mild transaminitis related to viral pneumonia #4. Hypertension #5. Obesity, with a BMI of 41.3 kg/m #6. Hyperlipidemia Plan: Continue Remdesivir We'll switch IV Decadron to oral Decadron 6 mg daily Continue prophylactic dose Lovenox and multivitamins Follow-up inflammatory markers and chest x-ray tomorrow If remains stable and continues to improve in next 24 hours may consider for discharge home I performed a history & physical examination of the patient and discussed their management with my nurse practitioner, Nessa Bowman. I reviewed the nurse practitioner's note and agree with the documented findings and plan of care. Lung sounds are positive for diminished breath sounds. The findings and the impression was discussed with the patient. I attest to the documentation by the nurse practitioner. Time with Patient: Less than 30
--- NOTE | 2020-11-05 12:46 | P.PN ---
Subjective Progress Note Date: 11/05/20 This is a 34-year-old gentleman admitted with acute COVID-19 pneumonia, acute hypoxic respiratory failure and multiple other medical issues. Scheduled for second dose of Remdesevir, as well as Decadron, vitamin supplements. Sitting up in chair, states feeling better ,maintaining O2 sats in the high 90s on 2 L nasal cannula, occasional productive cough-brownish sputum. Reports shortness of breath only when lying down-ambulating, tolerating exertion well.Afebrile, T- max 100.9, normal WBC. Recent D-dimer 1.28, ferritin 1219.7, LDH 865, CRP 7.6. Renal profile within normal limits. Objective - Vital Signs Vital signs: Vital Signs Temp 97.8 F 11/05/20 10:00 Pulse 79 11/05/20 10:00 Resp 18 11/05/20 10:00 BP 143/93 11/05/20 10:00 Pulse Ox 97 11/05/20 10:00 Intake & Output 11/04/20 11/05/20 11/05/20 18:59 06:59 18:59 Intake Total 900 Balance 900 Intake: Intake, IV Titration 900 Amount Sodium Chloride 0.9% 1, 900 000 ml @ 75 mls/hr IV . [id number] [facility] Rx#:[id number] Other: Voiding Method Toilet Toilet # Voids 1 - Exam PHYSICAL EXAM: VITAL SIGNS: As above GENERAL: Sitting up in chair, no acute distress HEENT: Conjunctivae normal. eyes normal. Oral mucosa moist NECK: No JVD. No thyroid enlargement. CARDIOVASCULAR: S1, S2 regular. No murmur RESPIRATION: Breath sounds diminished in the bases. No rhonchi or crackles. No wheezing ABDOMEN: Soft, nontender . No guarding. no masses palpable. No hep atosplenomegaly ,Bowel sounds heard. LEGS: No edema. no swelling PSYCHIATRY: Alert and oriented X3, mood and affect normal. NERVOUS SYSTEM: Cranial N 2-12 grossly normal. Moves all 4 limbs. No focal deficits. Strength and sensation grossly intact. Skin: Warm and dry, no rash - Labs CBC & Chem 7: 11/05/20 09:18 11/05/20 09:18 Labs: Abnormal Lab Results - Last 24 Hours (Table) 11/04/20 11/04/20 11/05/20 Range/Units 15:58 15:58 09:18 D-Dimer 1.28 H (<0.60) mg/L FEU Glucose 140 H (74-99) mg/dL Ferritin 1219.7 H (22.0-322.0) ng/mL AST 64 H (17-59) U/L ALT 77 H (4-49) U/L Assessment and Plan Assessment: Acute hypoxic respiratory failure secondary to acute covid pneumonia, positive COVID test at [facility] on 11/02/2020 Mild transaminitis secondary to the above Hypertension Hyperlipidemia Morbid obesity, BMI 41.3 Plan: Continue on current medication regime ,monitoring and symptomatic treatment. Maintain DVT prophylaxis with Lovenox, Covid cocktail including Remdesevir. Discharge planning in progress for tomorrow, pending pulmonary clearance. The impression and plan of care has been dictated as directed. : I performed a history and examination of this patient, discussed the same with the dictator. I agree with the dictator's note ,documented as a scribe. Any additional findings or plans will be noted.
[2020-11-05] MEDS: ACETAMINOPHEN TAB 325 MG TAB PO PRN (17:52)
[2020-11-05] MEDS: amLODIPine 5 MG TAB PO SCH (22:02)
[2020-11-06] MEDS: CHOLECALCIFEROL 25 MCG (1000 IU) TABLET PO SCH (07:56)
[2020-11-06] MEDS: METOPROLOL SUCCINATE (ER) 25 MG TAB.ER.24H PO SCH (07:56)
[2020-11-06] MEDS: ASCORBIC ACID 500 MG TAB PO SCH (07:56)
[2020-11-06] MEDS: ZINC SULFATE 220 MG CAP PO SCH (07:56)
[2020-11-06] MEDS: PANTOPRAZOLE 40 MG TABLET PO SCH (07:56)
[2020-11-06] MEDS: hydroCHLOROthiazide 12.5 MG CAP PO SCH (07:56)
[2020-11-06] MEDS: ENOXAPARIN 40 MG/0.4 ML SYRINGE SQ SCH (07:57)
[2020-11-06] MEDS: REMDESIVIR 100 MG in SODIUM CHLORIDE 0.9% 250 ML IVPB SCH (07:57)
--- NOTE | 2020-11-06 08:25 | XR ---
EXAMINATION TYPE: XR chest 1V portable DATE OF EXAM: 11/06/2020 COMPARISON: 11/04/2020 INDICATION: Covid TECHNIQUE: Single frontal view of the chest is obtained. FINDINGS: The heart size is normal. The pulmonary vasculature is normal. Mild infiltrates in the right mid and lower lung field. Findings are similar to comparison. IMPRESSION: 1. Peripheral small infiltrate right lateral base can be compatible with atypical pneumonia
[2020-11-06] MEDS ORDERED: dexAMETHasone 2 MG TAB PO SCH (09:00)
--- NOTE | 2020-11-06 09:38 | P.PN ---
Subjective Progress Note Date: 11/06/20 Principal diagnosis: COVID 19 This is a very pleasant 34-year-old gentleman with a known history of hypertension, hyperlipidemia, obesity. On 10/30/2020 he developed symptoms of i ncreasing shortness of breath, fever, chills and shakiness. He tested positive for COVID-19 on 11/02/2020 at [facility]. Yesterday his symptoms progressed and he has a home pulse oximeter that was radiating in the 70s. He has not received a COVID-19 vaccine. He has a coworker who was positive. His and children are asymptomatic. Chest x-ray reveals bilateral airspace opacities within the lower lungs. CT angiogram revealed no evidence of pulmonary embolism. There is scattered groundglass and multifocal consolidative disease within the lungs bilaterally consistent with COVID-19 pneumonia. White count 4.2. Hemoglobin 14.5. Sodium 136. Potassium 3.5. Creatinine 0.93. AST 69, ALT 84. LDH 865. C-reactive protein 7.6. He was given IV Decadron 10 mg 1 and 1 L of fluid. He is seen today in the emergency room. Currently laying comfortably on the stretcher. He states he is doing a bit better today compared to yesterday already. No worsening shortness of breath, cough or congestion. T-max 99.4. Maintaining O2 saturations in the low 90s on 2 L/m per nasal cannula. He has lost his sense of taste. He had a mild headache. No diarrhea. On 11/05/2020 patient seen in follow-up on medical surgical floor. he is awake alert, in no acute distress, he is on 2 L of oxygen pulse ox is 97%, he is afebrile, hemodynamically stable, breathing comfortably, today is day 2 of Re mdesivir treatment, he is also on IV Decadron 6 mg daily, some prophylactic dose of Lovenox, and multivitamins. Denies any chest discomfort, only occasional cough, no nausea vomiting or diarrhea. Today's labs have been reviewed, CBC was unremarkable, his last d-dimer from yesterday was 1.28, electrolytes and renal profile were within normal limits. On 11/06/2020 patient seen in follow-up on medical surgical floor. He is awake and alert, in no acute distress, he is on room air, he sitting up in the recliner, breathing comfortably, and pulse ox is 95%, today is Remdesivir D3, patient continues on oral Decadron, and multi-vitamins, he is on prophylactic dose of Lovenox. No complaints of chest discomfort, only occasional cough, but is sensitive been stable, his been afebrile. Follow-up chest x-ray shows peripheral small infiltrate in the right lateral base compatible with atypical pneumonia. Clinically patient has been stable, today's labs have been reviewed, d-dimer is down to 0.94. Other labs are pending right now. Objective - Vital Signs Vital signs: Vital Signs Temp 97.8 F 11/06/20 05:57 Pulse 58 L 11/06/20 05:57 Resp 16 11/06/20 05:57 BP 129/88 11/06/20 05:57 Pulse Ox 95 11/06/20 05:57 Intake & Output 11/05/20 11/06/20 11/06/20 18:59 06:59 18:59 Other: Voiding Method Toilet Toilet # Voids 3 1 # Bowel Movements 0 - Exam GENERAL EXAM: Alert, very pleasant, 34-year-old white male, room air pulse ox is 95%, on comfortable in no apparent distress. HEAD: Normocephalic/atraumatic. EYES: Normal reaction of pupils, equal size. Conjunctiva pink, sclera white. NOSE: Clear with pink turbinates. THROAT: No erythema or exudates. NECK: No masses, no JVD, no thyroid enlargement, no adenopathy. CHEST: No chest wall deformity. Symmetrical expansion. LUNGS: Equal air entry with no crackles, wheeze, rhonchi or dullness. CVS: Regular rate and rhythm, normal S1 and S2, no gallops, no murmurs, no rubs ABDOMEN: Soft, nontender. No hepatosplenomegaly, normal bowel sounds, no guarding or rigidity. EXTREMITIES: No clubbing, no edema, no cyanosis, 2+ pulses and upper and lower extremities. MUSCULOSKELETAL: Muscle strength and tone normal. SPINE: No scoliosis or deformity SKIN: No rashes CENTRAL NERVOUS SYSTEM: Alert and oriented -3. No focal deficits, tone is normal in all 4 extremities. PSYCHIATRIC: Alert and oriented -3. Appropriate affect. Intact judgment and insight. - Labs CBC & Chem 7: 11/05/20 09:18 11/05/20 09:18 Labs: Abnormal Lab Results - Last 24 Hours (Table) 11/05/20 11/06/20 Range/Units 09:18 07:09 D-Dimer 0.94 H (<0.60) mg/L FEU Glucose 140 H (74-99) mg/dL AST 64 H (17-59) U/L ALT 77 H (4-49) U/L Assessment and Plan Plan: Assessment: #1. Acute hypoxic rest or a failure secondary to acute COVID-19 pneumonia, onset of symptoms was on 10/30/2020, positive Kovic test at [facility] on 11/02/2020, Remdesivir started on 11/04/2020 #2. Elevated inflammatory markers related to the above #3. Mild transaminitis related to viral pneumonia #4. Hypertension #5. Obesity, with a BMI of 41.3 kg/m #6. Hyperlipidemia Plan: Patient is doing well, Today is day 3 of Remdesivir Patient is on room air No acute events overnight Stable for discharge home today after his third dose of Remdesivir she can complete 7 more days of oral Decadron Patient was instructed to come back for reevaluation in case of worsening symptoms Patient follow-up with Dr. Sanderson in the office in 2 weeks I performed a history & physical examination of the patient and discussed their management with my nurse practitioner, Nessa Bowman. I reviewed the nurse practitioner's note and agree with the documented findings and plan of care. Lung sounds are positive for diminished breath sounds. The findings and the impression was discussed with the patient. I attest to the documentation by the nurse practitioner. Time with Patient: Less than 30
[2020-11-06 10:32] VITALS: BP 146/99; PULSE 73; RESP 18; TEMP 97.7
--- NOTE | 2020-11-06 13:50 | P.DS ---
Providers Date of admission: 11/04/20 04:19 Expected date of discharge: 11/06/20 Attending physician: Pranay Kirk Consults: 11/04/20 04:19 Consult Physician Routine Consulting Provider: Tien Cruz Consult Reason/Comments: covid Do you want consulting provider notified?: Yes Primary care physician: Pranay Kirk [facility] Course: Final diagnoses: Acute hypoxic respiratory failure secondary to acute covid pneumonia, positive COVID test at [facility] on 11/02/2020 Mild transaminitis secondary to the above Hypertension Hyperlipidemia Morbid obesity, BMI 41.3 Hospital course:This is a 34-year-old gentleman admitted with acute COVID-19 pneumonia, acute hypoxic respiratory failure and multiple other medical issues. Scheduled for second dose of Remdesevir, as well as Decadron, vitamin supplements. Sitting up in chair, states feeling better ,maintaining O2 sats in the high 90s on 2 L nasal cannula, occasional productive cough-brownish sputum. Reports shortness of breath only when lying down-ambulating, tolerating exertion well.Afebrile, T-max 100.9, normal WBC. Recent D-dimer 1.28, ferritin 1219.7, LDH 865, CRP 7.6. Renal profile within normal limits. Significant clinical improvement. Cleared by pulmonary for discharge. Patient will be discharged home today in stable condition with guarded prognosis. The impression and plan of care has been dictated as directed. : I performed a history and examination of this patient, discussed the same with the dictator. I agree with the dictator's note ,documented as a scribe. Any additional findings or plans will be noted. Patient Condition at Discharge: Stable Plan - Discharge Summary New Discharge Prescriptions: New Aspirin EC [Ecotrin Low Dose] 81 mg PO DAILY 60 Days #60 tablet. Zinc Sulfate [Orazinc] 220 mg PO DAILY #30 cap dexAMETHasone ORAL [Hexadrol] 6 mg PO DAILY 7 Days #21 tab Acetaminophen Tab [Tylenol] 650 mg PO Q6HR PRN tab PRN Reason: Fever And/ Or Pain Ascorbic Acid [Vitamin C] 500 mg PO DAILY tab Cholecalciferol [Vitamin D3 (25 Mcg = 1000 Iu)] 25 mcg PO DAILY tablet Omeprazole [PriLOSEC] 20 mg PO AC-BRKFST #30 cap Continue amLODIPine/ATORVASTATIN [amLODIPine/ATORVASTATIN 5-10 MG] 1 tab PO HS Hydrochlorothiazide [hydroCHLOROthiazide] 12.5 mg PO DAILY Metoprolol Succinate [Toprol XL] 25 mg PO DAILY Discontinued Acetaminophen Tab [Tylenol Tab] 1,000 mg PO Q6HR PRN PRN Reason: Pain Or Fever > 100.5 Discharge Medication List Hydrochlorothiazide [hydroCHLOROthiazide] 12.5 mg PO DAILY 06/30/20 [History] Metoprolol Succinate [Toprol XL] 25 mg PO DAILY 06/30/20 [History] amLODIPine/ATORVASTATIN [amLODIPine/ATORVASTATIN 5-10 MG] 1 tab PO HS 06/30/20 [History] Acetaminophen Tab [Tylenol] 650 mg PO Q6HR PRN tab 11/06/20 [Rx] Ascorbic Acid [Vitamin C] 500 mg PO DAILY tab 11/06/20 [Rx] Aspirin EC [Ecotrin Low Dose] 81 mg PO DAILY 60 Days #60 tablet. 11/06/20 [Rx] Cholecalciferol [Vitamin D3 (25 Mcg = 1000 Iu)] 25 mcg PO DAILY tablet 11/06/20 [Rx] Omeprazole [PriLOSEC] 20 mg PO AC-BRKFST #30 cap 11/06/20 [Rx] Zinc Sulfate [Orazinc] 220 mg PO DAILY #30 cap 11/06/20 [Rx] dexAMETHasone ORAL [Hexadrol] 6 mg PO DAILY 7 Days #21 tab 11/06/20 [Rx] Follow up Appointment(s)/Referral(s): Holly Sanderson MD [STAFF PHYSICIAN] - 11/27/20 2:45 pm Pranay Kirk DO [Primary Care Provider] - 11/09/20 10:45 am Patient Instructions/Handouts: Coronavirus Disease 2019 (COVID-19) Activity/Diet/Wound Care/Special Instructions: Dc after Remdesivir today as per Pulm. Complete Quarantine for a total of 10 days. Discharge Disposition: HOME SELF-CARE
[2020-11-06 17:40] LABS: C Reactive Protein 2.3 mg/dL (0.0-0.8)
== END 2020-11-06 13:36 | disposition home or self-care (01) | DRG 177 ==
LOC: EC 03:00 → 4SSUR 04:19
PROVIDERS: ADMIT Family Medicine; ATTEND Family Medicine
PROC: XW033E5 Introduction of Remdesivir Anti-infective into Peripheral Vein, Percutaneous Approach, New Technology Group 5 (ICD-10-PCS; principal; 2020-11-04)
DX: U07.1 COVID-19 (principal); J12.82 Pneumonia due to coronavirus disease 2019; J81.0 Acute pulmonary edema; J96.01 Acute respiratory failure with hypoxia; Z68.41 Body mass index [BMI] 40.0-44.9, adult; E87.1 Hypo-osmolality and hyponatremia; I10 Essential (primary) hypertension; E66.01 Morbid (severe) obesity due to excess calories; R74.01 Elevation of levels of liver transaminase levels; E78.5 Hyperlipidemia, unspecified; F41.9 Anxiety disorder, unspecified; Z28.3 Underimmunization status; Z79.899 Other long term (current) drug therapy
CPT/HCPCS: 36415; 71045; 71275; 80053; 82728; 83605; 83615; 83735; 85025; 85379; 85610; 85730; 86140; 93005; 94640; 96374; 96375; 99285

== ENCOUNTER → 2021-07-26 | Outpatient (CLI) | payer BC ==
--- NOTE | 2021-07-26 11:42 | XR ---
EXAMINATION TYPE: XR lumbar spine 2 or 3V DATE OF EXAM: 07/26/2021 CLINICAL HISTORY: pain TECHNIQUE: Three views of the lumbar spine are submitted. COMPARISON: None. FINDINGS: There is wedge-shaped deformity of the L1 vertebral segment compatible with a remote compression frac ture. No additional compression fractures are seen within the [id number]. Moderate degenerative ch tristan lower lumbar facet joints. Mild degenerative narrowing L4-5 and L5-S1. Scattered ventral spondyl osis identified. IMPRESSION: No acute fracture or dislocation is seen in the lumbar spine. ICD 10 NO FRACTURE, INITIAL EVALUATION
== END | disposition home or self-care (01) ==
LOC: RADXRMAIN 11:14
PROVIDERS: ATTEND Nurse Practitioner Family
DX: M54.50 Low back pain, unspecified (principal)
CPT/HCPCS: 72100

== ENCOUNTER → 2024-01-27 | Outpatient (CLI) | payer BC ==
--- NOTE | 2024-02-02 12:01 | XR ---
EXAMINATION TYPE: XR finger RT DATE OF EXAM: 01/27/2024 COMPARISON: NONE HISTORY: 38-year-old male F43.10 POST TRAUMATIC STRESS fourth digit injury, contusion TECHNIQUE: 3 views coned-down right fourth finger FINDINGS: Joint spaces are maintained. No acute fracture, subluxation, or dislocation. IMPRESSION: No acute osseous abnormality seen. Imaging coned down onto the right fourth finger.
== END | disposition home or self-care (01) ==
LOC: RADXRMAIN 13:11
PROVIDERS: ATTEND Family Medicine
DX: F43.10 Post-traumatic stress disorder, unspecified (principal)

== ENCOUNTER → 2024-08-24 | Outpatient (CLI) | payer BC ==
--- NOTE | 2024-08-24 09:59 | US ---
EXAMINATION TYPE: US liver DATE OF EXAM: 08/24/2024 COMPARISON: NONE CLINICAL INDICATION: Male, 38 years old with history of R74.01 ELEVATION OF LEVELS OF LIVER TRANSAMIN ASE L; Elevated LFT's TECHNIQUE: Grayscale and color Doppler imaging of the right upper quadrant was performed. FINDINGS: EXAM MEASUREMENTS: Liver Length: 21.7 cm Gallbladder Wall: 0.2 cm CBD: 0.3 cm Right Kidney: 12.4 x 5.2 x 5.8 cm INSEAMER NOTES: Pancreas: wnl, tail obscured by overlying bowel gas Liver: Enlarged, difficult to penetrate, heterogeneous with probable fatty sparing anterior to GB Gallbladder: wnl Evidence for sonographic Clark's sign: No CBD: wnl Right Kidney: No evidence of hydro Hepatomegaly is present. Visualized liver is heterogeneously hyperechoic. Evaluation for focal masses suboptimal due to the heterogeneity. No ascites is present. IMPRESSION: Hepatomegaly with heterogeneous hyperechoic appearance likely reflecting diffuse fatty infiltrative h epatocellular disease. No biliary dilatation or ascites noted. [facility], , 08/24/2024 9:57 AM
== END | disposition home or self-care (01) ==
LOC: RADUSWWP 09:20
PROVIDERS: ATTEND Family Medicine
DX: R16.0 Hepatomegaly, not elsewhere classified (principal); R74.01 Elevation of levels of liver transaminase levels
CPT/HCPCS: 76705